=== PATIENT | female | born 1955 | race Caucasian/White ===

== ENCOUNTER 2016-05-05 19:45 | Emergency (ER) | payer OTHER ==
[2016-05-05 19:50] VITALS: BP 124/50; PULSE 55; TEMP 97.2; BMI 32.9
[2016-05-05] MEDS ORDERED: OXYCODONE/APAP 5/325MG COMBO TABLET PO ONE ×2 (20:50→21:55)
[2016-05-05] MEDS ORDERED: OXYCODONE/APAP 5/325MG COMBO TABLET ONE ×2 (20:52→21:56)
[2016-05-05 21:17] LABS: URINE APPEARANCE CLEAR; URINE BILIRUBIN NEGATIVE (NEGATIVE); URINE BLOOD NEGATIVE (NEGATIVE); URINE COLOR YELLOW; URINE GLUCOSE (UA) NEGATIVE (NEGATIVE); URINE KETONE TRACE (NEGATIVE); URINE NITRITE NEGATIVE (NEGATIVE); URINE PROTEIN NEGATIVE (NEGATIVE); URINE UROBILINOGEN NEGATIVE E.U./dl (0.2-1.0)
[2016-05-05 21:29] LABS: URINE LEUK ESTERASE 2+ (NEGATIVE)
[2016-05-05 21:30] LABS: URINE MUCUS MANY; URINE RBC 11 /hpf (0-3); URINE WBC 15 /hpf (3-5)
--- NOTE | 2016-05-05 22:24 | PDOC ---
History of Present Illness - General Chief Complaint: Back Pain Stated Complaint: BACK PAIN Time Seen by Provider: 05/05/16 20:39 History Source: Patient Exam Limitations: No Limitations - History of Present Illness Initial Comments: 05/05/16 22:13 CC lower back pain x 2 days, no trauma, but has increased walking recently due to moms illness;long hx of ?? LBP; pain radiates to thigh with difficulty walking Severity: reports: moderate Pain Location: reports: back Method of Injury: Yes: other (no trauma) Loss of Consciousness: no loss of consciousness Associated Symptoms (Fall): denies symptoms Past History - Past Medical History Allergies/Adverse Reactions: Allergies Allergy/AdvReac Type Severity Reaction Status Date / Time apple Allergy Verified 05/05/16 19:50 gustafson flavor Allergy Verified 05/05/16 19:50 melon Allergy Verified 05/05/16 19:50 pear Allergy Verified 05/05/16 19:50 strawberry Allergy Verified 05/05/16 19:50 tomato Allergy Verified 05/05/16 19:50 Home Medications: Ambulatory Orders Acetaminophen/Caffeine/Butalb [Fioricet -] 1 tab PO Q4H PRN 01/20/16 Albuterol Sulfate Inhaler - [Ventolin HFA Inhaler -] 1 - 2 inh PO Q4H PRN Aspirin [Erika Chewable Aspirin] 81 mg PO DAILY 01/20/16 Atorvastatin Ca [Lipitor] 20 mg PO HS 01/20/16 Loratadine [Claritin -] 10 mg PO DAILY 01/20/16 Montelukast Na [Singulair -] 10 mg PO HS 01/20/16 Amlodipine Besylate [Norvasc -] 2.5 mg PO DAILY #30 tablet 01/22/16 Levetiracetam [Keppra] 1,000 mg PO BID #120 tablet 01/22/16 Cancer: Yes (cervical) CVA: Yes (R SIDED WEAKNESS) HTN: Yes Hypercholesterolemia: Yes Suicide Attempt (Hx): No Seizures: Yes - Immunization History Immunization Up to Date: Yes - Psycho/Social/Smoking Cessation Hx Anxiety: No Suicidal Ideation: No Smoking History: Never smoked Have you smoked in the past 12 months: No Hx Alcohol Use: No Drug/Substance Use Hx: No Substance Use Type: None Review of Systems - Review of Systems Constitutional: No: Chills, Fever, Malaise HEENTM: No: Symptoms Reported Respiratory: No: Symptoms reported, Cough Cardiac (ROS): No: Symptoms Reported ABD/GI: No: Symptoms Reported, Diarrhea, Nausea, Vomiting : No: Burning, Dysuria, Discharge, Urgency Musculoskeletal: Yes: Back Pain Neurological: Yes: Weakness (old weaknes on right from small stroke). No: Numbness, Paresthesia, Tingling *Physical Exam - Vital Signs Last Vital Signs Temp Pulse Resp BP Pulse Ox 97.2 F L 55 L 20 124/50 97 05/05/16 19:47 05/05/16 19:47 05/05/16 19:47 05/05/16 19:47 05/05/16 19:47 - Physical Exam General Appearance: Yes: Appropriately Dressed, Apparent Distress HEENT: positive: TMs Normal, Pharynx Normal Neck: positive: Supple, Lymphadenopathy (R), Lymphadenopathy (L). negative: Tender, Rigid Respiratory/Chest: positive: Lungs Clear Cardiovascular: positive: Regular Rhythm, Regular Rate. negative: Murmur Gastrointestinal/Abdominal: positive: Normal Bowel Sounds, Flat, Soft. negative : Tender, Organomegaly, Rebound, Tenderness Rectal Exam: negative: heme negative stool, normal exam, NL Prostate Musculoskeletal: positive: Other (tender to left SI joint; ) Extremity: positive: Normal Capillary Refill. negative: Normal Inspection Neurologic: positive: Numbness, Sensory Deficit, Other (SLRs= no root pain; no foot drop noted). negative: Babinski Deep Tendon Reflexes: Knee (L): 1+, Knee (R): 1+ ED Treatment Course - ADDITIONAL ORDERS Additional order review: Laboratory Results 05/05/16 20:43 Urine Color Yellow Urine Appearance Clear Urine pH 5.0 Ur Specific [place] 1.031 Urine Protein Negative Urine Glucose (UA) Negative Urine Ketones Trace H Urine Blood Negative Urine Nitrite Negative Urine Bilirubin Negative Urine Urobilinogen Negative Ur Leukocyte Esterase 2+ H Urine RBC 11 Urine WBC 15 Ur Epithelial Cells Rare Urine Mucus Many - Medications Given in the ED: ED Medications Discontinued Medications Generic Name Dose Route Start Last Admin Trade Name Freq PRN Reason Stop Dose Admin Oxycodone/Acetaminophen 1 combo 05/05/16 20:50 05/05/16 20:55 Percocet 5/325 - PO 05/05/16 20:51 1 combo ONCE ONE Administration Oxycodone/Acetaminophen 1 combo 05/05/16 21:55 05/05/16 21:57 Percocet 5/325 - PO 05/05/16 21:56 1 combo ONCE ONE Administration Medical Decision Making - Medical Decision Making 05/05/16 22:27 feeling better post percocets; ambulating well; has ride home; will send with short course of percocet and will treat UTI *DC/Admit/Observation/Transfer Diagnosis at time of Disposition: Chronic lower back pain UTI (urinary tract infection) Qualifiers: Urinary tract infection type: site unspecified Hematuria presence: without hematuria Qualified Code(s): N39.0 - Urinary tract infection, site not specified - Discharge Dispostion Disposition: HOME Condition at time of disposition: Stable Admit: No - Patient Instructions Additional Instructions: please follow up with local MD if symptoms no better, keep Tuesday appointment
== END 2016-05-05 22:43 | disposition home or self-care (01) ==
LOC: JERFT 19:45
DX: N39.0 Urinary tract infection, site not specified (principal); M54.5 Low back pain; G89.29 Other chronic pain; R26.2 Difficulty in walking, not elsewhere classified; Z85.41 Personal history of malignant neoplasm of cervix uteri; I69.851 Hemiplegia and hemiparesis following other cerebrovascular disease affecting right dominant side; I10 Essential (primary) hypertension; Z79.82 Long term (current) use of aspirin
CPT/HCPCS: 81003; 81015; 99281-25

== ENCOUNTER 2017-04-23 16:38 | Emergency (ER) | payer OTHER ==
[2017-04-23 16:42] VITALS: BP 129/95; PULSE 68; TEMP 97.5; BMI 35.8
[2017-04-23] MEDS ORDERED: METOCLOPRAMIDE HCL INJECTION 10 MG/2 ML VIAL IVPUSH ONE (18:03)
[2017-04-23] MEDS ORDERED: ACETAMINOPHEN/CAFFEINE/BUTALBITAL 1 TAB PO ONE (18:07)
[2017-04-23] MEDS ORDERED: ACETAMINOPHEN/CAFFEINE/BUTALBITAL 1 TAB ONE (18:08)
--- NOTE | 2017-04-23 18:12 | PDOC ---
History of Present Illness - General History Source: Patient Exam Limitations: No Limitations - History of Present Illness Initial Comments: 04/23/17 18:30 The patient is a 61 year old female, with a significant past medical history of headaches, brain aneurysm s/p clips, htn, hld, seizures, who presents to the emergency department with headache for 5 hours today. She localizes her headache to frontal with radiation to temples bilaterally. She states this headache feels like her usual headache with greater intensity, She reports Fioricet is the only thing that helps, however, ran out of her medication and had one pill left over from several months ago. She denies relief with taking one fioricet and reports she usually takes two for relief. She describes the headache is throbbing, 10/10 in severity, but denies photophobia. She reports feeling lightheaded also. Secondarily, she reportedly started topiramate (25 mg ) for headaches on 04/19/17 without relief. She states she does not feel she needs a head CT. She denies chest pain, shortness of breath, and dizziness. She denies fever, chills, nausea, vomit, diarrhea and constipation. She denies dysuria, frequency , urgency and hematuria. Allergies: NKDA <Betzy Hurtado - Last Filed: 04/23/17 18:30> - General History Source: Patient Exam Limitations: No Limitations <Federico Carcamo - Last Filed: 04/23/17 18:50> - General Chief Complaint: Headache Stated Complaint: HEADACHE Time Seen by Provider: 04/23/17 17:31 Past History <Betzy Hurtado - Last Filed: 04/23/17 18:30> - Past Medical History Cancer: Yes (cervical) CVA: Yes (R SIDED WEAKNESS) COPD: No HTN: Yes Hypercholesterolemia: Yes Seizures: Yes - Immunization History Immunization Up to Date: Yes - Suicide/Smoking/Psychosocial Hx Smoking History: Never smoked Have you smoked in the past 12 months: No Hx Alcohol Use: No Drug/Substance Use Hx: No Substance Use Type: None <Federico Carcamo - Last Filed: 04/23/17 18:50> - Past Medical History Allergies/Adverse Reactions: Allergies Allergy/AdvReac Type Severity Reaction Status Date / Time apple Allergy Verified 04/23/17 16:42 gustafson flavor Allergy Verified 04/23/17 16:42 melon Allergy Verified 04/23/17 16:42 pear Allergy Verified 04/23/17 16:42 strawberry Allergy Verified 04/23/17 16:42 tomato Allergy Verified 04/23/17 16:42 Home Medications: Ambulatory Orders Acetaminophen/Caffeine/Butalb [Fioricet -] 1 tab PO Q4H PRN 01/20/16 Albuterol Sulfate Inhaler - [Ventolin HFA Inhaler -] 1 - 2 inh PO Q4H PRN Aspirin [Erika Chewable Aspirin] 81 mg PO DAILY 01/20/16 Loratadine [Claritin -] 10 mg PO DAILY 01/20/16 Montelukast Na [Singulair -] 10 mg PO HS 01/20/16 Levetiracetam [Keppra] 1,000 mg PO BID #120 tablet 01/22/16 Acetaminophen/Caffeine/Butalb [Fioricet -] 1 tab PO Q6H PRN #20 tablet MDD 4 Review of Systems - Review of Systems Able to Perform ROS?: Yes Comments:: 04/23/17 18:30 GENERAL/CONSTITUTIONAL: No fever or chills. No weakness. HEAD, EYES, EARS, NOSE AND THROAT: No change in vision. No ear pain or discharge. No sore throat. CARDIOVASCULAR: No chest pain or shortness of breath. RESPIRATORY: No cough, wheezing, or hemoptysis. GASTROINTESTINAL: No nausea, vomiting, diarrhea or constipation. GENITOURINARY: No dysuria, frequency, or change in urination. MUSCULOSKELETAL: No joint or muscle swelling or pain. No neck or back pain. SKIN: No rash NEUROLOGIC: (+) headache and lightheaded. No vertigo, loss of consciousness, or change in strength/sensation. ENDOCRINE: No increased thirst. No abnormal weight change. HEMATOLOGIC/LYMPHATIC: No anemia, easy bleeding, or history of blood clots. ALLERGIC/IMMUNOLOGIC: No hives or skin allergy. <Betzy Hurtado - Last Filed: 04/23/17 18:30> *Physical Exam - Vital Signs Last Vital Signs Temp Pulse Resp BP Pulse Ox 97.5 F L 68 20 129/95 100 04/23/17 16:38 04/23/17 16:38 04/23/17 16:38 04/23/17 16:38 04/23/17 16:38 - Physical Exam Comments: 04/23/17 18:31 GENERAL: Awake, alert, and fully oriented, in no acute distress HEAD: No signs of trauma EYES: PERRLA, EOMI, sclera anicteric, conjunctiva clear ENT: Auricles normal inspection, hearing grossly normal, nares patent, oropharynx clear without exudates. Moist mucosa NECK: Normal ROM, supple, no lymphadenopathy, JVD, or masses LUNGS: Breath sounds equal, clear to auscultation bilaterally. No wheezes, and no crackles HEART: Regular rate and rhythm, normal S1 and S2, no murmurs, rubs or gallops ABDOMEN: Soft, nontender, normoactive bowel sounds. No guarding, no rebound. No masses EXTREMITIES: Normal range of motion, no edema. No clubbing or cyanosis. No cords, erythema, or tenderness NEUROLOGICAL: (+) 5/5 MS in LUE and LLE. chronic 4/5 MS in RUE and RLE s/p CVA. Cranial nerves II-XII intact. Normal speech, normal gait. Sensation intact in upper and lower extremities. No pronator drift. Finger to nose intact. Rapid alternations intact. SKIN: Warm, Dry, normal turgor, no rashes or lesions noted. <Betzy Hurtado - Last Filed: 04/23/17 18:30> - Vital Signs Last Vital Signs Temp Pulse Resp BP Pulse Ox 97.5 F L 68 20 129/95 100 04/23/17 16:38 04/23/17 16:38 04/23/17 16:38 04/23/17 16:38 04/23/17 16:38 <Federico Carcamo - Last Filed: 04/23/17 18:50> ED Treatment Course - Medications Given in the ED: ED Medications Discontinued Medications Generic Name Dose Route Start Last Admin Trade Name Freq PRN Reason Stop Dose Admin Acetaminophen/Butalbital/Caffeine 2 tablet 04/23/17 18:07 04/23/17 18:11 Fioricet - PO 04/23/17 18:08 2 tablet ONCE ONE Administration <Betzy Hurtado - Last Filed: 04/23/17 18:30> Medical Decision Making - Medical Decision Making 04/23/17 18:08 A portion of this note was documented by scribe services under my direction. I have reviewed the details of the note, within reason, and agree with the documentation with the following case summary and management plan written by me. Patient treated in the ED. Nursing notes are reviewed and incorporated into the medical decision-making. Vital signs reviewed. Vital Signs Temp Pulse Resp BP Pulse Ox 97.5 F L 68 20 129/95 100 04/23/17 16:38 04/23/17 16:38 04/23/17 16:38 04/23/17 16:38 04/23/17 16:38 61-year-old female patient with history of cerebral aneurysm status post clipping, hypertension, CVA with right-sided residual deficit, seizure disorder , chronic headaches presents with acute on chronic headache. Patient reports that she ran out of her Fioricet medications. She had one fears that she is able take but typically needs to. Reports that her characteristic her headache is very similar to her chronic headaches. She denies fevers or chills. Denies neck stiffness. States that this headache is no different than others. I suspect that this is likely acute on chronic headache. We'll trial 2 beers this. The headache improves, we'll discharge with a prescription. At this time, given the characters of the headache is similar, we'll defer on head CT at this time. 04/23/17 18:47 The head has improved drastically. Pt would like to go home. She will go home with her sister. She requests a referral to a neurologist. I discussed the physical exam findings, ancillary test results and final diagnoses with the patient. I answered all of the patient's questions. The patient was satisfied with the care received and felt comfortable with the discharge plan and treatment plan. The patient will call their primary care physician within 24 hours to arrange follow-up and will return to the Emergency Department with any new, persistant or worsening symptoms. <Federico Carcamo - Last Filed: 04/23/17 18:50> *DC/Admit/Observation/Transfer - Attestations Scribe Attestion: 04/23/17 18:32 Documentation prepared by Betzy Hurtado, acting as medical technologist blood bank for Federico Carcamo MD <Betzy Hurtado - Last Filed: 04/23/17 18:30> - Discharge Dispostion Admit: No <Federico Carcamo - Last Filed: 04/23/17 18:50> Diagnosis at time of Disposition: Headache Qualifiers: Headache type: other headache syndrome Qualified Code(s): G44.89 - Other headache syndrome - Discharge Dispostion Disposition: HOME Condition at time of disposition: Improved - Prescriptions Prescriptions: Acetaminophen/Caffeine/Butalb [Fioricet -] 1 tab PO Q6H PRN #20 tablet MDD 4 PRN Reason: Headache - Referrals Referrals: Estela Cruz MD [Primary Care Provider] - Esvin Stephenson MD [Staff Physician] - Phani Jang MD [Staff Physician] - Milton Olvera MD [Staff Physician] - - Patient Instructions Printed Discharge Instructions: DI for Headache Additional Instructions: Take the fiorciet as needed for severe headache. Make an appointment with a neurologist. Call to schedule an appointment. - Post Discharge Activity
== END 2017-04-23 18:59 | disposition home or self-care (01) ==
LOC: JER 16:38
DX: G44.89 Other headache syndrome (principal); I10 Essential (primary) hypertension; E78.00 Pure hypercholesterolemia, unspecified; G40.909 Epilepsy, unspecified, not intractable, without status epilepticus; I69.851 Hemiplegia and hemiparesis following other cerebrovascular disease affecting right dominant side; Z85.41 Personal history of malignant neoplasm of cervix uteri
CPT/HCPCS: 99281-25

== ENCOUNTER 2022-03-30 04:30 | Day surgery (SDC) | payer OTHER ==
[2022-03-26 11:30] VITALS: BMI 31.6
[~2022-03-30 04:30] MED LIST: BUPIVACAINE HCL/PF 0.5% (5MG/ML) 10 ML VIAL IJ ONE; IOHEXOL 180 MG/1 ML ML IJ ONE; LIDOCAINE HCL 1% PRESERVATIVE FREE - 30ML VIAL IJ ONE; TRIAMCINOLONE ACET 40MG/1ML VIAL IM ONE
[2022-03-30] MEDS ORDERED: TRIAMCINOLONE ACET 40MG/1ML VIAL ONE (07:11)
[2022-03-30] MEDS ORDERED: LIDOCAINE HCL/PF 1% SDV 5ML VIAL ONE (07:12)
[2022-03-30] MEDS ORDERED: BUPIVACAINE HCL/PF 0.5% (5MG/ML) 10 ML VIAL ONE (07:12)
[2022-03-30] MEDS ORDERED: TRIAMCINOLONE ACET 40MG/1ML VIAL IM ONE (11:51)
[2022-03-30] MEDS ORDERED: BUPIVACAINE HCL/PF 0.5% (5MG/ML) 10 ML VIAL IJ ONE ×2 (11:51)
[2022-03-30] MEDS ORDERED: LIDOCAINE HCL 1% PRESERVATIVE FREE - 30ML VIAL IJ ONE (11:51)
[2022-03-30] MEDS ORDERED: IOHEXOL 180 MG/1 ML ML IJ ONE ×2 (11:51)
[2022-03-30 12:30] VITALS: BP 126/62; PULSE 59; RESP 20; TEMP 97.9
== END 2022-03-30 12:25 | disposition home or self-care (01) ==
LOC: JASU-SURG 04:30
PROVIDERS: ATTEND Pain Medicine Pain Medicine
PROC: 3E0U3BZ Introduction of Anesthetic Agent into Joints, Percutaneous Approach (ICD-10-PCS; 2022-03-30)
PROC: 3E0U33Z Introduction of Anti-inflammatory into Joints, Percutaneous Approach (ICD-10-PCS; principal; 2022-03-30 12:00)
DX: M53.3 Sacrococcygeal disorders, not elsewhere classified (principal)
CPT/HCPCS: 76000-TC-FY

== ENCOUNTER 2022-04-27 04:29 | Day surgery (SDC) | payer OTHER ==
[2022-04-21 14:39] VITALS: BMI 31.6
[~2022-04-27 04:29] MED LIST changes: -BUPIVACAINE HCL/PF 0.5% (5MG/ML) 10 ML VIAL IJ ONE; +DEXAMETHASONE SOD PHOSPHATE 10 MG/1 ML VIAL IVPUSH ONE; -TRIAMCINOLONE ACET 40MG/1ML VIAL IM ONE
[2022-04-27] MEDS ORDERED: DEXAMETHASONE SOD PHOSPHATE 10 MG/1 ML VIAL ONE (07:20)
[2022-04-27] MEDS ORDERED: LIDOCAINE HCL/PF 1% SDV 5ML VIAL ONE (07:20)
[2022-04-27 09:02] VITALS: RESP 18
[2022-04-27] MEDS ORDERED: LIDOCAINE HCL 1% PRESERVATIVE FREE - 30ML VIAL IJ ONE (11:53)
[2022-04-27] MEDS ORDERED: IOHEXOL 180 MG/1 ML ML IJ ONE (11:54)
[2022-04-27] MEDS ORDERED: DEXAMETHASONE SOD PHOSPHATE 10 MG/1 ML VIAL IVPUSH ONE (11:57)
[2022-04-27 12:21] VITALS: TEMP 96.9
[2022-04-27 13:08] VITALS: BP 125/67; PULSE 60
== END 2022-04-27 12:35 | disposition home or self-care (01) ==
LOC: JASU-SURG 04:29
PROVIDERS: ATTEND Pain Medicine Pain Medicine
PROC: 3E0R3BZ Introduction of Anesthetic Agent into Spinal Canal, Percutaneous Approach (ICD-10-PCS; 2022-04-27)
PROC: 3E0R33Z Introduction of Anti-inflammatory into Spinal Canal, Percutaneous Approach (ICD-10-PCS; principal; 2022-04-27 11:00)
DX: M54.16 Radiculopathy, lumbar region (principal)
CPT/HCPCS: 76000-TC-FY; J1100

== ENCOUNTER 2022-06-29 05:15 | Day surgery (SDC) | payer OTHER ==
[2022-06-25 10:06] VITALS: BMI 32.9
[2022-06-29] MEDS ORDERED: LIDOCAINE 1% P/F 10 MG/ML VIAL INF ONE ×2 (10:35)
[2022-06-29 11:18] VITALS: RESP 18; TEMP 97.7
[2022-06-29 11:22] VITALS: BP 123/76; PULSE 61
== END 2022-06-29 11:35 | disposition home or self-care (01) ==
LOC: JASU-SURG 05:15
PROVIDERS: ATTEND Pain Medicine Pain Medicine
PROC: 01HY3MZ Insertion of Neurostimulator Lead into Peripheral Nerve, Percutaneous Approach (ICD-10-PCS; principal; 2022-06-29 10:00)
DX: G89.4 Chronic pain syndrome (principal)
CPT/HCPCS: 64555; C1778; 76000-TC-FY

== ENCOUNTER 2024-02-23 05:20 | Day surgery (SDC) | payer OTHER ==
[2024-02-17 14:38] VITALS: BMI 31.4
[2024-02-23] MEDS: LIDOCAINE HCL 1% PRESERVATIVE FREE - 30ML VIAL IJ ONE ×2 (09:18)
[2024-02-23] MEDS ORDERED: ACETAMINOPHEN 500 MG TABLET (FP) PO PRN (09:36)
[2024-02-23 09:53] VITALS: PULSE 54; RESP 20
[2024-02-23 10:19] VITALS: BP 158/81; TEMP 97.4
== END 2024-02-23 10:30 | disposition home or self-care (01) ==
LOC: JASU-SURG 05:20
PROVIDERS: ATTEND Pain Medicine Pain Medicine
PROC: 01HY3MZ Insertion of Neurostimulator Lead into Peripheral Nerve, Percutaneous Approach (ICD-10-PCS; principal; 2024-02-23 08:30)
DX: G89.4 Chronic pain syndrome (principal); M25.562 Pain in left knee
CPT/HCPCS: 64555; C1778

== ENCOUNTER 2024-03-15 04:06 | Day surgery (SDC) | payer OTHER ==
[2024-03-07 12:25] VITALS: BMI 31.4
[2024-03-15] MEDS: LIDOCAINE HCL 1% PRESERVATIVE FREE - 30ML VIAL IJ ONE ×2 (12:34)
[2024-03-15] MEDS: ACETAMINOPHEN 500 MG TABLET (FP) PO PRN (13:39)
[2024-03-15] MEDS ORDERED: ACETAMINOPHEN 500 MG TABLET (FP) ONE (13:40)
[2024-03-15 13:49] VITALS: PULSE 56
[2024-03-15 13:57] VITALS: BP 148/56; RESP 18; TEMP 97
== END 2024-03-15 14:16 | disposition home or self-care (01) ==
LOC: JASU-SURG 04:06
PROVIDERS: ATTEND Pain Medicine Pain Medicine
PROC: 01HY3MZ Insertion of Neurostimulator Lead into Peripheral Nerve, Percutaneous Approach (ICD-10-PCS; principal; 2024-03-15 12:31)
DX: M25.562 Pain in left knee (principal); G89.4 Chronic pain syndrome
CPT/HCPCS: C1778